=== PATIENT | male | born 1995 | race Caucasian/White ===

== ENCOUNTER 2021-11-13 17:47 | Emergency (ER) | payer MEDICAID ==
[~2021-11-13] VITALS: Ht 177.8 cm; Wt 70.0 kg
[2021-11-13] MEDS ORDERED: IBUPROFEN 800MG TABLET PO ONE (19:30)
[2021-11-13] MEDS ORDERED: CLINDAMYCIN PHOSPHATE 600MG/4ML VIAL IM ONE (19:30)
[2021-11-13] MEDS ORDERED: ACETAMINOPHEN 325MG TABLET PO ONE (19:30)
[2021-11-13] MEDS ORDERED: CLIN-194 MT (19:48)
[2021-11-13] MEDS ORDERED: IBUP-2029 MT (19:48)
[2021-11-13 20:10] VITALS: BP 128/80
== END 2021-11-13 20:10 | disposition home or self-care (01) ==
LOC: ER 17:47
DX: L03.114 Cellulitis of left upper limb (principal)
CPT/HCPCS: 99283; J3490